=== PATIENT | female | born 1985 | race Caucasian/White ===

== ENCOUNTER 2019-01-25 17:00 | Outpatient (RCR) | payer BC, SELFPAY ==
--- NOTE | 2019-01-18 18:55 | HP.PTEVAL_ITS ---
Patient's Visit Information NOAM GUTIERREZ is a 33 year old F referred to Physical Therapy by STEVEN Doll with a diagnosis of dizziness. Date of Evaluation: 01/18/19 Physical Therapist: FAISAL Gill - Visit Plan Frequency: 1-2x /Week Duration: 6 Weeks Plan: 1-2 X/ week for 6 weeks VOR exercises (for smooth pursuit and VOR Cx) in sitting/ standing/ walking, vestibular challenges, walking with head turns with HEP - Subjective Findings: Pt reports that she has been dealing with migranes for years now. She has been dealing with dizziness and she was on antivert and they took her off of it and now the dizziness is back and want to try PT before going back on meds. She get room spinning dizziness. It is random. The room will spin for the whole day. SHe does not notices that specific motions make it worse... just movement in general makes it worse. THis has been going on for about 1 year. SHe is getting the dizzy spells more and more since off the anivert ( every 3 days). She gets car sick... that started maybe 5 years ago. SHe has not had any falls. when she gets the dizziness she gets a dull MARTINEZ after awhile as well. She reports that her balance is bad when she is dizzy. - Objective Gait: Normal gait. CATSIB 103. FGA: 25. Horizontal pursuit: increase dizziness after 30 seconds. No nystagmus or slowness of movement. Vertical pursuit: some increase in dizziness after 30 seconds but not as bad as horizontal. VOR Cx: Pt had a lot of dizziness in horizontal for 30 seconds and in horizontal plane and gets dizzy. - Balance Scores Functional Gait Assessment Score: 25 % Disability: 16.6700 CATSIB Score (Max score 120 seconds): 103 - Goals Goal 1:: I HEP Goal Time Frame: 2-4 Weeks Goal 2:: Pt will be increase CATSIB Score to 120/120 ( especially standing on foam with EC) Goal Time Frame: 4-6 Weeks Goal 3:: Increase ability to perform VOR Cx in standing/ walking without dizziness Goal Time Frame: 4-6 Weeks Goal 4:: Decrease dizziness by 50% Goal Time Frame: 4-6 Weeks - Rehabilitation Potential Rehabilitation Potential: Good - Anticipated Interventions Patient/Client Instruction: Educate patient on: Condition, Plan of Care For the Purpose of:: To improve muscle performance and motor function, To improve ability to perform ADL's, To increase tolerance to activity/condition/position, To improve ability of physical actions for home/community/work/leisure, To improve gait and locomotor functions, To improve balance Therapeutic Exercise to Include: Strength training, Balance training, Gait and locomotor training, Neuromotor development For the Purpose of:: To improve muscle performance and motor function, To increase tolerance to activity/condition/position, To improve ability of physical actions for home/community/work/leisure, To improve gait and locomotor functions, To improve endurance, To improve balance, To improve safety with gait Functional Training to Include: Gait training For the Purpose of:: To improve gait and locomotor functions Thank you for the opportunity to evaluate your patient. For Medicare and Medicare HMO plans, please review the plan of care and approve it. It will need to be FAXED BACK to us at [phone] for Medicare purposes. For Medicare only, by signing this I certify the plan of care. Please let me know if there are questions or concerns regarding this plan of care. Physician Signature: Date:
--- NOTE | 2019-05-08 15:48 | HP.PTDCNRP_ITS ---
HP - Discharge Summary (1) - Patient Information NOAM GUTIERREZ was seen in my office for initial evaluation on 01/18/19. The following Plan of Care was established for this patient: Initial Frequency: 1-2x /Week Initial Duration: 6 Weeks - Anticipated Interventions Patient/Client Instruction: Educate patient on: Condition, Plan of Care For the Purpose of:: To improve muscle performance and motor function, To impr ove ability to perform ADL's, To increase tolerance to activity/condition/position, To improve ability of physical actions for home/community/work/leisure, To improve gait and locomotor functions, To improve balance Therapeutic Exercise to Include: Strength training, Balance training, Gait and locomotor training, Neuromotor development For the Purpose of:: To improve muscle performance and motor function, To increase tolerance to activity/condition/position, To improve ability of physical actions for home/community/work/leisure, To improve gait and locomotor functions, To improve endurance, To improve balance, To improve safety with gait Functional Training to Include: Gait training For the Purpose of:: To improve gait and locomotor functions This patient was last seen in our office 01/29/19. Pertinent comments regarding their Physical therapy will appear below: [facility] as pt cancelled her second appointment with us. At this point I will be discontinuing this patient from physical therapy. I would be happy to see this patient again in the future if found appropriate by the physician. Thank you! Jolynn Rangel, MPT
== END 2019-01-25 19:00 | disposition home or self-care (01) ==
LOC: PT 17:00
PROVIDERS: Referring Provider Nurse Practitioner Family; Visit Provider Nurse Practitioner Family
DX: R42 Dizziness and giddiness (principal)
CPT/HCPCS: 97161; 97530